=== PATIENT | male | born 1995 | race Caucasian/White ===

== ENCOUNTER 2017-08-31 17:24 | Emergency (ER) | payer OTHER, SELFPAY ==
[2017-08-31 17:25] VITALS: BP 157/70; PULSE 87; RESP 16; TEMP 36.2; O2SAT 97; BMI 27.8
--- NOTE | 2017-08-31 17:45 | CT_ITS ---
STUDY: CT BRAIN WITHOUT CONTRAST REASON FOR EXAM: Male, 22 years old. Head injury RADIATION DOSAGE (If Supplied By Facility): CTDIvol = ( 44.99 ) mGy, DLP = ( 796.11 ) mGycm TECHNIQUE: Transaxial CT imaging of the brain was performed without administration of intravenous contrast material. Individualized dose optimization techniques were used for this CT. COMPARISON: None. FINDINGS: Normal soft tissue structures. Normal calvarium. Normal size ventricles and extra-axial spaces for the patient's age. Normal white matter tracts of the cerebral hemispheres. Normal basal ganglia and thalami. Normal brainstem. Normal cerebellum. There is no intracranial hemorrhage. There are no findings of an acute ischemic infarction. Normal visualized paranasal sinuses. CT/Brain/Head without Contrast IMPRESSION: Normal unenhanced CT scan of the brain. Electronically Signed: Michael Leiva MD at 19:40 EDT , Service support ,
--- NOTE | 2017-08-31 17:47 | ED.DCSUM_ITS ---
- ER Visit Summary Date of Service: 08/31/17 Chief Complaint: Head injury History of Present Illness: The patient is a 22 M resents to the emergency with head injury. The patient was in his normal state of health. He was playing softball. He dove for a ball, and it bounced, and struck him in the left forehead. He is unsure if he lost consciousness. Since then, he had a mild headache, dizziness, nausea. The patient is not on anticoagulants. His last tetanus was less than 5 years ago. There is no history of hemophilia. Physical Examination: Vital signs reviewed General: Well-nourished, well-developed Head: Normocephalic, abrasion with contusion above left eye, abrasion of nose, no hemotympanum, no nasal septal hematoma Eyes: Pupils equal and reactive, extraocular muscles intact Neck, supple, no lymphadenopathy Heart: Regular rate and rhythm Respiratory: No distress, clear bilaterally Abdomen: Soft, nontender, nondistended, no peritoneal signs Back: Nontender Extremities: Nontender, no edema, no cords Skin: Normal color no rash Neuro: Alert and oriented, no focal or lateralizing deficits Test Results: [] Emergency Department Course and Treatment: With the patient's persistent headache and dizziness, I did obtain head CT. There is no evidence of acute intracerebral abnormality. Patient's wound was cleaned and dressed. There is no laceration will benefit from closure. Patient given Tylenol with improvement of symptoms. He was counseled on head injury and reasons to return. He will be discharged home. Treatment Plan: [] Disposition: Charge Impression:. Concussion 2. Facial abrasions This note was generated with [employer] dictation software. It may contain incorrect words, spelling, and punctuation that were not noted in review of the chart prior to signing ED Disposition - Plan for ED Patient: Chief Complaint: Head Injury Instructions: ED Concussion Referrals: Ugo Chicas [Primary Care Provider] -
[2017-08-31] MEDS: Ondansetron ODT 4 MG Tablet PO (17:51)
[2017-08-31] MEDS: Acetaminophen 500 MG Tablet 1000 MG PO (19:37)
[2017-08-31 20:07] VITALS: BP 138/88; PULSE 71; RESP 16; O2SAT 98
== END 2017-08-31 20:11 | disposition home or self-care (01) ==
PROVIDERS: Emergency Provider Emergency Medicine; Family Provider Family Medicine; PCP Family Medicine
DX: S06.0X0A Concussion without loss of consciousness, initial encounter (principal); S00.212A Abrasion of left eyelid and periocular area, initial encounter; S00.31XA Abrasion of nose, initial encounter; W22.8XXA Striking against or struck by other objects, initial encounter; Y93.64 Activity, baseball; Y92.320 Baseball field as the place of occurrence of the external cause; Y99.8 Other external cause status
CPT/HCPCS: 70450; 99283

== ENCOUNTER → 2022-06-27 | Outpatient (CLI) | payer SELFPAY, OTHER ==
--- NOTE | 2022-06-27 12:22 | ECHOD_ITS ---
Reason For Study: SOB Procedure This was a 2D Doppler, Color Flow transthoracic echocardiogram. Exam performed in department. Left Ventricle Normal left ventricle. The left ventricular ejection fraction is 65 %. Right Ventricle Normal right ventricle. Atria The left and right atria are normal. Bubble contrast study is positive for PFO. Mitral Valve Trivial mitral valve insufficiency. Tricuspid Valve Trivial tricuspid valve insufficiency. Unable to estimate RV systolic pressure due to insufficient tricuspid regurgitant envelope. Aortic Valve Normal aortic valve. Pulmonic Valve The pulmonic valve is not well visualized. Great Vessels Normal sized aortic root. Pericardium/Pleural No pericardial effusion. Medication 22 gauge I.V. with prn adaptor inserted into right arm. Performed a rapid injection of agitated mix of 9 cc saline and 1cc air to assess for atrial septal defect. MMode/2D Measurements & Calculations LVIDd: 5.1 cm IVSd: 0.98 cm Ao root diam: 2.9 cm LVIDs: 3.8 cm LVPWd: 1.0 cm FS: 24.8 % LAV(MOD-bp): 47.0 ml LVAd ap4: 28.1 cm2 SV(MOD-sp4): 53.0 ml LAV(MOD-bp) Indexed: 21.6 ml/m2 LVLd ap4: 7.9 cm LAV(MOD-sp2): 48.8 ml EDV(MOD-sp4): 85.0 ml LAV(MOD-sp4): 45.9 ml EDV(sp4-el): 84.3 ml LVAs ap4: 15.7 cm2 LVLs ap4: 6.4 cm ESV(MOD-sp4): 32.0 ml ESV(sp4-el): 32.8 ml EF(MOD-sp4): 62.4 % EF(sp4-el): 61.1 % SV(sp4-el): 51.5 ml LA A4 area: 17.3 cm2 LA dimension(2D): 3.4 cm RA A4 area: 16.1 cm2 Time Measurements MV dec time: 0.16 sec Doppler Measurements & Calculations MV E max omar: 64.2 cm/sec Lat Peak E' Omar: 17.9 cm/sec Med Peak E' Omar: 13.1 cm/sec MV A max omar: 56.6 cm/sec E/E' lat: 3.6 E/E' med: 4.9 MV E/A: 1.1 MV V2 max: 76.1 cm/sec MV dec slope: 510.3 cm/sec2 Ao V2 max: 115.1 cm/sec MV max P.3 mmHg Ao max P.3 mmHg MV V2 mean: 56.2 cm/sec Ao V2 mean: 84.0 cm/sec MV mean P.3 mmHg Ao mean P.2 mmHg MV V2 VTI: 20.3 cm Ao V2 VTI: 23.3 cm AV (velocity ratio): 0.82 LV V1 max: 96.0 cm/sec PA V2 max: 107.7 cm/sec LV V1 max P.7 mmHg PA V2 mean: 77.2 cm/sec LV V1 mean P.3 mmHg LV V1 mean: 72.5 cm/sec LV V1 VTI: 19.0 cm ECHO/Echo Complete Interpretation Summary The left ventricular ejection fraction is 65 %. Bubble contrast study is positive for PFO. Ordering Physician: Aaron Keating Referring Physician: KENDELL KOTHARI Performed By: Anita Small RCS
--- NOTE | 2022-06-27 13:20 | STRESSREP ---
Stress Test Report Date: 06/27/2022 Procedure: Exercise tolerance test Indications: Dyspnea/chest pain Consent: Per the patient Procedure: The patient exercised on a Edwin protocol for 9 minutes achieving a peak heart rate of 166 bpm (86% predicted maximal heart rate) with a peak blood pressure 154/78 mmHg and a peak MET capacity of approximately 10.1 MET's. The baseline ECG demonstrated normal sinus rhythm. The peak exercise ECG demonstrated no ischemic changes. There were no cardiac dysrhythmias pretest, during exercise, or recovery. The functional capacity was considered good. The patient had no complaints of chest discomfort during exercise or recovery. The examination was discontinued secondary to target heart rate being achieved and patient's complaint of dizziness. Impression: 1. Technically adequate (percent predicted maximal heart rate greater than 85%) exercise tolerance test 2. Peak exercise ECG with no ischemic changes 3. There were no cardiac dysrhythmias during exercise or recovery This note was generated with [employer] software. It may contain incorrect words, spelling, and punctuation that were not noted in checking the note before signing.
== END | disposition home or self-care (01) ==
LOC: CVS 12:20
PROVIDERS: PCP Family Medicine; Visit Provider Internal Medicine Cardiovascular Disease
DX: R07.9 Chest pain, unspecified (principal); R06.02 Shortness of breath; R00.2 Palpitations
CPT/HCPCS: 93017; 93306; A4216

== ENCOUNTER → 2023-10-23 | Outpatient (CLI) | payer OTHER, SELFPAY | END | disposition home or self-care (01) | PROVIDERS: PCP Family Medicine; Referring Provider Otolaryngology; Visit Provider Otolaryngology | DX: J02.9 Acute pharyngitis, unspecified (principal) | CPT/HCPCS: 87070 ==

== ENCOUNTER → 2024-02-28 | Outpatient (CLI) | payer SELFPAY ==
--- NOTE | 2024-02-28 09:02 | US_ITS ---
STUDY: ABDOMINAL ULTRASOUND - RIGHT UPPER QUADRANT REASON FOR VISIT: Male, 28 years old abnormal LFTs TECHNIQUE: Ultrasound evaluation of the right upper quadrant was performed with real-time and static sampson-scale imaging. TECHNICAL QUALITY: Limited. Examination limited by bowel gas. COMPARISON: None. FINDINGS: Liver: The liver measures 17 cm. There is increased echogenicity consistent with fatty infiltration. The bile ducts are within normal limits. There is hepatic color flow. The direction of portal flow is hepatopetal. There is no demonstrated mass lesion. Gallbladder: Normal distended gallbladder. The gallbladder wall measures 2 mm. There is a negative sonographic Bee''s sign. There is no pericholecystic fluid. There are no gallstones. Common Bile Duct (C.B.D.): The common bile duct measures 3 mm. Pancreas: Visualized pancreas is sonographically normal Right Kidney: Normal size of the right kidney. The right kidney measures 12.2 x 5.4 x 6.1 cm. Normal renal cortex. The right cortex measures 1.8 cm. There is no demonstrated renal mass or cyst. There is no right hydronephrosis. US/Abdomen Limited IMPRESSION: Enlarged fatty liver, no discrete lesion Electronically Signed: Frank Nieto MD at 21:08 EST ,
== END | disposition home or self-care (01) ==
PROVIDERS: PCP Family Medicine
DX: R74.01 Elevation of levels of liver transaminase levels (principal)
CPT/HCPCS: 76705

== ENCOUNTER → 2024-05-04 | Outpatient (CLI) | payer OTHER, SELFPAY ==
[2024-05-04 15:21] LABS: Absolute Lymphocyte Count 2.14 X10^3/uL (0.83-4.51); Basophil# 0.03 X10^3/uL; Basophil% 0.5 % (0-1); Eosinophil# 0.04 X10^3/uL; Eosinophils% 0.7 % (0-5); Hematocrit 44.5 % (40-54); Hemoglobin 15.4 g/dL (13.0-16.5); Lymphocyte # 2.14 X10^3/ul (0.83-4.51); Lymphocyte % 37.3 % (19-41); Mean Corp Hgb Conc 34.6 g/dL (32-36); Mean Corpuscular Hgb 30.3 pg (27.0-32.0); Mean Corpuscular Volume 87.4 fL (80-94); Mean Platelet Vol. 9.3 fl (6.2-12.0); Monocyte# 0.49 X10^3/uL; Monocyte% 8.6 % (0-10); NRBC Flagged by Analyzer 0 % (0-5); Neutrophil # 3.02 X10^3/uL (2.7-7.7); Neutrophil % 52.7 % (47-70); Platelet Count 219 K/mm3 (150-450); RBC Distribution Width CV 11.6 % (11.6-14.6); RBC Distribution Width SD 37.2 fl (35.1-43.9); Red Blood Count 5.09 M/mm3 (4.6-6.2); White Blood Count 5.7 K/mm3 (4.4-11.0)
[2024-05-04 16:00] LABS: ALB/GLOB Ratio 1.1 RATIO (0.9-2.4); AST(SGOT) 31 U/L (15-37); Alanine Aminotransfer ALT/SGPT 98 U/L (16-61); Alkaline Phosphatase 89 U/L (45-117); Anion Gap 6 (5-15); BUN 16 mg/dL (7-18); BUN/Creat Ratio 15.8 RATIO (10-20); Calcium,Total 9.5 mg/dL (8.5-10.1); Chloride 106 mmol/L (98-107); Creatinine, Serum 1.01 mg/dL (0.70-1.30); EST Glomerular Filtration Rate 93 mL/min (>60); Est Glom Filt Rate - Afr Amer 112 mL/min (>60); Globulin 3.6 g/dL (2.2-4.2); Glucose 91 mg/dL (74-106); Potassium 3.9 mmol/L (3.5-5.1); Protein, Total 7.6 g/dL (6.4-8.2); Sodium Level 140 mmol/L (136-145)
[2024-05-04 16:12] LABS: Hepatitis B Surface Antibody Non-Reactive
[2024-05-04 16:38] LABS: Hepatitis B Surface Antigen Non-Reactive (Nonreactive); Hepatitis C Antibody Non-Reactive (Nonreactive)
[2024-05-06 05:07] LABS: Hepatitis A AB, Total Negative (Negative); Hepatitis B Core Ab Total Negative (Negative)
== END | disposition home or self-care (01) ==
PROVIDERS: PCP Family Medicine; Referring Provider Nurse Practitioner Acute Care; Visit Provider Nurse Practitioner Acute Care
DX: K76.0 Fatty (change of) liver, not elsewhere classified (principal)
CPT/HCPCS: 36415; 80053; 85025; 86704; 86706; 86708; 86803; 87340

== ENCOUNTER → 2024-05-05 | Outpatient (CLI) | payer SELFPAY ==
[2024-05-06 11:08] LABS: H. PYLORI STOOL AG Negative (Negative)
== END | disposition home or self-care (01) ==
PROVIDERS: PCP Family Medicine; Referring Provider Nurse Practitioner Acute Care; Visit Provider Nurse Practitioner Acute Care
DX: R12 Heartburn (principal)
CPT/HCPCS: 87338

== ENCOUNTER 2024-06-29 11:38 | Day surgery (SDC) | payer SELFPAY ==
--- NOTE | 2024-06-28 12:56 | PAT.ANESEVAL ---
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 When Was Last Pacemaker Check QUESTION #4 FULL TEXT: You/Your Family Experience fever (hyperthermia) with Anesthesia Last Oral Intake Last Oral intake: Last Oral Intake NPO since Meds taken in AM with sips of water? Meds patient instructed to take am of surgery PONV PONV - furnace helper: PONV - furnace helper Female No 06/25/24 16:08 HX of Motion Sickness Yes 06/25/24 16:08 HX of N/V After Surgery No 06/25/24 16:08 Non-Smoker Yes 06/25/24 16:08 Duration of Surgery greater No 06/25/24 16:08 than 60 minutes Number of Risk Factors 2 06/25/24 16:08 PONV Score Moderate Risk 06/25/24 16:08 Height & Weight Height & Weight: Anesthesia: Height & Weight Height 5 ft 10 in 05/04/24 13:29 Respiratory Assessment Respiratory Assessment - furnace helper: Respiratory Tract Infection Hx - furnace helper Hx Respiratory Tract Infection No 06/25/24 16:08 STOP Sleep Apnea STOP Sleep Apnea - furnace helper: STOP Sleep Apnea - furnace helper Hx Hypertension No 06/25/24 16:08 Hx Sleep Apnea No 06/25/24 16:08 CPAP BIPAP Do you snore loudly (louder Yes 06/25/24 16:08 than talking or can be heard Do you often feel tired/ No 06/25/24 16:08 fatigued/ sleepy during daytime? Has anyone observed you stop No 06/25/24 16:08 breathing during sleep? STOP Results Negative 06/25/24 16:08 QUESTION #5 FULL TEXT : Do you snore loudly (louder than talking or can be heard through closed doors)? 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 Specify any problems Hx of Preganancy in last 3 N/A 06/25/24 16:08 Months Nurse Filling Out Transfusion DSCHRIBER 06/25/24 16:08 & Questions: Date: 06/25/24 06/25/24 16:08 Time: 16:10 06/25/24 16:08 Patient unable to answer at this time (ie. confused, unrespo /Reproduction History /Reproductive History - furnace helper: /Reproductive Hx- furnace helper Hx Now No 06/25/24 16:08 Gestational Age (in weeks): EDC: Hx Hx Para Hx Section SAB No 06/25/24 16:08 PFSH Medical History (Updated 06/25/24 @ 16:19 by Shaniqua Sanchez) Wears glasses Low iron Restless legs Back pain Injury of head and neck History of hiatal hernia Former smoker Fatty liver History of edema History of echocardiogram History of stress test Cardiology follow-up encounter History of irregular heartbeat GERD (gastroesophageal reflux disease) Anxiety Migraine PFO (patent foramen ovale) Palpitations Home Medications ?Medication ?Instructions ?Recorded ?Last Taken ?Type NK 06/25/24 Unknown History Allergy/AdvReac Type Severity Reaction Status Date / Time diphenhydramine (From AdvReac Intermediate Other Verified 06/25/24 16:06 Benadryl) Family History Grandfather CAD (coronary artery disease) Father Hypertension Grandfather Pacemaker Mother Migraine Surgical History (Updated 06/25/24 @ 16:19 by Shaniqua Sanchez) Hx of wisdom tooth extraction Hx of nasal septoplasty History of ankle surgery Social History Smoking Status: Former smoker alcohol intake: never substance use type: does not use caffeine: Yes Type: coffee Number of servings: 2 Audit: Pertinent Findings Pertinent Findings EKG Perinent findings: 06/12/2022. Sinus rhythm. RSR V1 nondiagnostic. Echo (EF%) pertinent findings: 06/27/2022. EF 65%. Bubble contrast study is positive for PFO. Consult pertinent findings: Cardiology 10/31/2022. Hypertension. Inactive. PFO. Chronic. Stable. Palpitations. Chronic. No significant arrhythmia noted on Holter. Recommendation Anesthesia Recommendation Anesthesia recommendation: OPTIMIZED for anesthesia
[2024-06-29] VITALS (9 sets, daily range): BP systolic 112–121; BP diastolic 75–85; PULSE 74–82; RESP 14–16; TEMP 36.2–36.4; O2SAT 93–98; BMI 32.5
--- NOTE | 2024-06-29 12:12 | PCM.PRE.AN2 ---
ASA Classification* ASA Classification ASA Classification: 2 Assessment & Plan Anesthesia* Anesthesia Assessment Anesthesia Assessment: Discussed sedation and/or anesthesia options, risks, benefits, and alternatives with patient/parents/legal guardian/POA. Questions invited. The patient/parents/legal guardian/POA seems to understand and agrees to proceed with anesthesia plan. Reviewed the physical assessment, medical history, allergy history and patient home medications list prior to surgery/procedure/anesthetic and documented any changes. Performed airway and anesthesia risk assessments. Anesthesia Type Anesthesia Type: MAC History Source History Obtained from:: Patient and Chart Anesthesia Focused Assessment* Temperature: 97.3 F Pulse Rate: 80 Blood Pressure: 121/82 Respiratory Rate: 16 Pulse Ox: 98 Oxygen Delivery Method: Room Air Airway Assessment Mouth opens: >3 cm Mallampati Score: I Teeth Condition: Intact Neck Range of motion (ROM): Full ROM Focused Labs Anesthesia Preop lab: CBC WBC 5.7 K/mm3 (4.4-11.0) 05/04/24 14:36 05/04/24 RBC 5.09 M/mm3 (4.6-6.2) 05/04/24 14:36 05/04/24 Hgb 15.4 g/dL (13.0-16.5) 05/04/24 14:36 05/04/24 Hct 44.5 % (40-54) 05/04/24 14:36 05/04/24 Plt Count 219 K/mm3 (150-450) 05/04/24 14:36 05/04/24 CHEMISTRY Potassium 3.9 mmol/L (3.5-5.1) 05/04/24 14:36 05/04/24 Sodium 140 mmol/L (136-145) 05/04/24 14:36 05/04/24 BUN 16 mg/dL (7-18) 05/04/24 14:36 05/04/24 Creatinine 1.01 mg/dL (0.70-1.30) 05/04/24 14:36 05/04/24 Glucose 91 mg/dL (74-106) 05/04/24 14:36 05/04/24 COAG Pre-Assessment Diagnosis/Proposed Procedure Planned Operative Procedure(s): EGD Anesthesia History 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 When Was Last Pacemaker Check QUESTION #4 FULL TEXT: You/Your Family Experience fever (hyperthermia) with Anesthesia Last Oral Intake Last Oral intake: Last Oral Intake NPO since 22:30 06/29/24 12:03 Meds taken in AM with sips of No 06/29/24 12:03 water? Meds patient instructed to take am of surgery PONV PONV - electrical manufacturing engineer: PONV - electrical manufacturing engineer Female No 06/25/24 16:08 HX of Motion Sickness Yes 06/25/24 16:08 HX of N/V After Surgery No 06/25/24 16:08 Non-Smoker Yes 06/25/24 16:08 Duration of Surgery greater No 06/25/24 16:08 than 60 minutes Number of Risk Factors 2 06/25/24 16:08 PONV Score Moderate Risk 06/25/24 16:08 Height & Weight Height & Weight: Anesthesia: Height & Weight Height 5 ft 10 in 06/29/24 12:03 Weight: 102.8 kg 06/29/24 12:03 Body Mass Index (BMI) 32.5 06/29/24 12:03 Respiratory Assessment Respiratory Assessment - electrical manufacturing engineer: Respiratory Tract Infection Hx - electrical manufacturing engineer Hx Respiratory Tract Infection No 06/25/24 16:08 STOP Sleep Apnea STOP Sleep Apnea - electrical manufacturing engineer: STOP Sleep Apnea - electrical manufacturing engineer Hx Hypertension No 06/25/24 16:08 Hx Sleep Apnea No 06/25/24 16:08 CPAP BIPAP Do you snore loudly (louder Yes 06/25/24 16:08 than talking or can be heard Do you often feel tired/ No 06/25/24 16:08 fatigued/ sleepy during daytime? Has anyone observed you stop No 06/25/24 16:08 breathing during sleep? STOP Results Negative 06/25/24 16:08 QUESTION #5 FULL TEXT : Do you snore loudly (louder than talking or can be heard through closed doors)? 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 Specify any problems Hx of Preganancy in last 3 N/A 06/25/24 16:08 Months Nurse Filling Out Transfusion DSCHRIBER 06/25/24 16:08 & Questions: Date: 06/25/24 06/25/24 16:08 Time: 16:10 06/25/24 16:08 Patient unable to answer at this time (ie. confused, unrespo /Reproduction History /Reproductive History - electrical manufacturing engineer: /Reproductive Hx- electrical manufacturing engineer Hx Now No 06/25/24 16:08 Gestational Age (in weeks): EDC: Hx Hx Para Hx Section SAB No 06/25/24 16:08 PFSH Medical History Wears glasses Low iron Restless legs Back pain Injury of head and neck History of hiatal hernia Former smoker Fatty liver History of edema History of echocardiogram History of stress test Cardiology follow-up encounter History of irregular heartbeat GERD (gastroesophageal reflux disease) Anxiety Migraine PFO (patent foramen ovale) Palpitations Home Medications ?Medication ?Instructions ?Recorded ?Last Taken ?Type NK 06/25/24 Unknown History Allergy/AdvReac Type Severity Reaction Status Date / Time diphenhydramine (From AdvReac Intermediate Other Verified 06/29/24 12:01 Benadryl) Family History Grandfather CAD (coronary artery disease) Father Hypertension Grandfather Pacemaker Mother Migraine Surgical History Hx of wisdom tooth extraction Hx of nasal septoplasty History of ankle surgery Social History Smoking Status: Former smoker alcohol intake: never substance use type: does not use caffeine: Yes Type: coffee Number of servings: 2 Review of Systems (Anesthesia) ROS Narrative System reviewed and no additional complaints, except as documented.
--- NOTE | 2024-06-29 12:30 | EGD_PTH ---
PATIENT: ALLIE HORN LOC: EN U#:[id number] AGE/SX: 29/M ROOM: RE06/29/[address]: Dr. Yobany Chilel DO : 1995 BED: DIS: 06/29/2024 SPEC #: [id number] RECD: 06/30/24 09:44 STATUS: YARIEL LIS #: [id number] CHAR: 06/29/24 12:[address]: Yobany Chilel DEPT: SURGICAL PATHOLOGY RECD BY: Nathalie Pascual ENTERED: 06/30/24 10:15 SP TYPE: EGD BIOPSY JOHN DR: Dr. Yusuf Whitfield MD Tissues: A - Gastric mucous membrane B - Esophagus, NOS Procedures: Immunohistochemical Stains Surgery Specimen Level IV HEADER OPERATION: EGD with biopsies PRE-OP DIAGNOSIS: Gastroesophageal reflux disease, heartburn, fatty liver TISSUE SUBMITTED: A- Gastric body biopsy, B- Distal esophagus biopsy x3 MICROSCOPIC DIAGNOSIS A. Stomach, body, biopsy: * Oxyntic and antral/transitional mucosa with features of reactive gastropathy. * Negative for H pylori organisms (H&E stain). B. Distal esophagus, biopsy x 3: * Squamous mucosa with mild reactive changes. * Columnar mucosa negative for goblet cell metaplasia. MICROSCOPIC DESCRIPTION Slides are reviewed. GROSS DESCRIPTION A. Received in formalin in a container labeled with the patient's name, date of , and gastric body biopsy are multiple higuera-pink fragments of mucosal tissue measuring 1.0 x 0.7 x 0.3 cm in aggregate. Submitted in toto in A1. B. Received in formalin in a container labeled with the patient's name, date of , and distal esophagus biopsy x 3 are multiple higuera-pink fragments of mucosal tissue measuring 1.0 x 0.7 x 0.2 cm in aggregate. Submitted in toto in B1. [facility] 06/29/2024 CPT:[id number]
--- NOTE | 2024-06-29 13:02 | HP.PCM_ITS ---
HPI - General General Date of Admission: 06/29/24 Date of Service: 06/29/24 Chief Complaint: abdominal pain and GERD HPI Narrative ALLIE HORN, is a 29 M who presents for the evaluation of abdominal pain and GERD LABS: 02/16/2024 CBC WNL, ALT 105, AST 41 11/06/2023 ALT 89 ABD US: 02/28/2024 hepatomegaly with steatosis GIMAP 02/19/2024 negative C. Diff, Shigella, E. Coli, O&P - Fecal Elastase WNL - Fecal Calprotectin WNL - Septoplasy April 2023 has had burning in back of throat since then - denies any HB, reflux or dysphagia - f/u with ENT not related to surgery - Amoxicillin x2 did not help - PPI and sucralfate helped a little bit but did not get rid of anything - if he eats slow with small meals - he does not notice the uneasy feeling as much - weight loss of 45lbs in the past year - he does snore and is a mouth breather - Omeprazole BID x14 days - no improvement - sucralfate BID no improvement - he typically has 2-3 between eating and laying down - no longer experiencing constipation with dietary changes -He is experiencing some diarrhea, feels this is secondary to possible too much fiber -His diet primarily consists of protein and some vegetables -He denies any bleeding -He denies any family history of colon cancer - Food Allergy testing - eggs, dairy, peanuts - brother 31y/o [facility] Medical History Wears glasses Low iron Restless legs Back pain Injury of head and neck History of hiatal hernia Former smoker Fatty liver History of edema History of echocardiogram History of stress test Cardiology follow-up encounter History of irregular heartbeat GERD (gastroesophageal reflux disease) Anxiety Migraine PFO (patent foramen ovale) Palpitations Home Medications ?Medication ?Instructions ?Recorded ?Last Taken ?Type NK 06/25/24 Unknown History Allergy/AdvReac Type Severity Reaction Status Date / Time diphenhydramine (From AdvReac Intermediate Other Verified 06/29/24 12:01 Benadryl) Family History Grandfather CAD (coronary artery disease) Father Hypertension Grandfather Pacemaker Mother Migraine Surgical History Hx of wisdom tooth extraction Hx of nasal septoplasty History of ankle surgery Social History Smoking Status: Former smoker alcohol intake: never substance use type: does not use caffeine: Yes Type: coffee Number of servings: 2 ROS Constitutional Constitutional: Denies fatigue, fever(s), poor appetite, weight gain or weight loss Gastrointestinal Gastrointestinal: Denies belching, bloating, change in bowel habits, change in stool character, chewing difficulty, coffee ground emesis, constipation, cramping, diarrhea, dyspepsia, dysphagia, early satiety, excessive flatus, fecal incontinence, heartburn, hematemesis, hematochezia, hemorrhoids, loose stools, melena, nausea, odynophagia, rectal bleeding, tenesmus, vomiting or weight changes Vital Signs Vital Signs Vital Signs: 06/29/24 12:03 06/29/24 12:03 06/29/24 12:19 Temperature 97.3 F L 97.3 F L Temperature Source Temporal Pulse Rate 80 80 Respiratory Rate 16 16 Respiratory Pattern Normal Blood Pressure 121/82 H 121/82 H Blood Pressure Mean 95 Blood Pressure Source Monitor Blood Pressure Position Semi-Fowlers Blood Pressure Location Right Arm Pulse Ox 98 98 Oxygen Delivery Method Room Air Room Air Weight Weight: 226 lb 10.163 oz Body Mass Index (BMI) 32.5 Physical Exam Const alert, oriented x3, no apparent distress and healthy appearing General Appearance: cooperative GI normal to inspection, nondistended, normoactive bowel sounds, soft to palpation, non-tender and non-distended Percussion: normal to percussion Rectal Exam: deferred Assessment & Plan Assessment/Plan (1) Elevated liver enzymes: (2) Fatty liver: (3) Heartburn: PLAN: Plan Assessment and Plan Assessment and Plan (1) Gastroesophageal reflux disease: Qualifiers: Esophagitis presence: esophagitis presence not specified Qualified Code(s): K21.9 - Gastro-esophageal reflux disease without esophagitis (2) Heartburn: Status: Acute (3) Fatty liver: Status: Acute Orders: Orders H. PYLORI STOOL AG Today R12 - Heartburn CBC W/Diff, Automated Today K76.0 - Fatty (change of) liver, not elsewhere classified Comprehensive Metabolic Profil Today K76.0 - Fatty (change of) liver, not elsewhere classified Hepatitis A AB, Total Today K76.0 - Fatty (change of) liver, not elsewhere classified Hepatitis B Core Ab Total Today K76.0 - Fatty (change of) liver, not elsewhere classified Medications: New vonoprazan (Voquezna) take once daily with or without food 20 mg PO QDAY 30 tabs 3RF Plan 28y/o male presents for consultation with complaints of sore throat, epigastric burning and elevated transaminases. Labs completed February 2024 reveal AST 41, ALT 105. ABD US completed 02/28/2024 revealed hepatomegaly with steatosis. Symptoms began post Septoplasty one year ago. He complains of burning sensation in back of throat and roof of mouth with occasional epigastric burning and heartburn. Symptoms are worse in the morning and he does feel symptoms are effecting his voice. He denies any improvement in symptoms with omeprazole BID, sucralfate or two courses of Amoxicillin. He does notice a decrease in symptoms with eating small meals. He reports an intentional weight loss of 45 pounds in the past year. I have ordered H. pylori stool testing which she will complete and then start vocalize nausea 20 mg once daily. He has made significant dietary changes including increasing his protein intake, vegetables and elimination of fatty and fried foods to promote weight loss. With these dietary changes he reports resolution of constipation but is now experiencing some diarrhea. He denies any bleeding or abdominal pain. I have recommended he start FiberCon tablets once daily. Labs completed February 2024 reveal an AST of 105, AST 41 and CBC WNL. Abdominal ultrasound also performed February 2024 revealed hepatomegaly and steatosis. I have ordered additional labs and FibroScan. He will follow-up in the office to review results. Patient Instructions: Fibercon 2 tablets once daily with 8 ounces of water after a meal. May take up to 3 weeks for symptom improvement. Voquezna 20mg once daily, take with or without food. Complete H. pylori stool testing prior to starting Voquezna EGD Follow-up in the office 1-2 weeks post EGD
--- NOTE | 2024-06-29 13:32 | OP.EGD_ITS ---
Patient Name: Marcelino Kincaid Procedure Date: 06/29/2024 1:04 PM Date of : 1995 Age: 29 Procedure: Upper GI endoscopy Indications: Functional Dyspepsia, Heartburn Providers: Yobany Chilel DO Referring MD: Yusuf Whitfield Md Medicines: Monitored Anesthesia Care Patient Profile: This is a 29 year old male. Refer to note in patient chart for documentation of history and physical. Patient has symptoms of chronic heartburn and chronic regurgitation. Complications: No immediate complications. Procedure: Pre-Anesthesia Assessment: - Prior to the procedure, a History and Physical was performed, and patient medications and allergies were reviewed. The patient is competent. The risks and benefits of the procedure and the sedation options and risks were discussed with the patient. All questions were answered and informed consent was obtained. Patient identification and proposed procedure were verified by the physician in the pre-procedure area. Mental Status Examination: alert and oriented. Airway Examination: normal oropharyngeal airway and neck mobility. Respiratory Examination: clear to auscultation. CV Examination: normal. Prophylactic Antibiotics: The patient does not require prophylactic antibiotics. Prior Anticoagulants: The patient has taken no anticoagulant or antiplatelet agents except for NSAID medication. ASA Grade Assessment: II - A patient with mild systemic disease. After reviewing the risks and benefits, the patient was deemed in satisfactory condition to undergo the procedure. The anesthesia plan was to use monitored anesthesia care (MAC). Immediately prior to administration of medications, the patient was re-assessed for adequacy to receive sedatives. The heart rate, respiratory rate, oxygen saturations, blood pressure, adequacy of pulmonary ventilation, and response to care were monitored throughout the procedure. The physical status of the patient was re-assessed after the procedure. After obtaining informed consent, the endoscope was passed under direct vision. Throughout the procedure, the patient's blood pressure, pulse, and oxygen saturations were monitored continuously. The Endoscope was introduced through the mouth, and advanced to the second part of duodenum. The upper GI endoscopy was accomplished without difficulty. The patient tolerated the procedure well. Scope In: 1:16:30 PM Scope Out: 1:22:51 PM Total Procedure Duration Time 0 hours 6 minutes 21 seconds Findings: The Z-line was irregular and was found 40 cm from the incisors. Biopsies were taken with a cold forceps for histology. Verification of patient identification for the specimen was done. Estimated blood loss was minimal. Patchy mildly erythematous mucosa without bleeding was found in the gastric body. Biopsies were taken with a cold forceps for histology. Verification of patient identification for the specimen was done. Biopsies were taken with a cold forceps for Helicobacter pylori testing. Verification of patient identification for the specimen was done. Estimated blood loss was minimal. No gross lesions were noted in the entire examined duodenum. Impression: - Z-line irregular, 40 cm from the incisors. Biopsied. - Erythematous mucosa in the gastric body. Biopsied. - No gross lesions in the entire examined duodenum. Recommendation: - Discharge patient to home. - Resume previous diet. - Continue present medications. - Await pathology results. Procedure Code(s): --- Professional --- 95903, Esophagogastroduodenoscopy, flexible, transoral; with biopsy, single or multiple CPT copyright 2021 [employer]. All rights reserved. The codes documented in this report are preliminary and upon information coder review may be revised to meet current compliance requirements. Yobany Chilel DO 06/29/2024 1:31:59 PM This report has been signed electronically. Number of Addenda: 0 Note Initiated On: 06/29/2024 1:04 PM
--- NOTE | 2024-06-29 13:32 | OP.CCLET_ITS ---
06/29/2024 Yusuf Whitfield Md Re : Upper GI endoscopy procedure for Marcelino Vazquez Nahid This procedure was performed on Saturday, June 29, 2024. My impressions and recommendations are as follows: Impressions : - Z-line irregular, 40 cm from the incisors. Biopsied. - Erythematous mucosa in the gastric body. Biopsied. - No gross lesions in the entire examined duodenum. Recommendations : - Discharge patient to home. - Resume previous diet. - Continue present medications. - Await pathology results. My findings are described in the full procedure note, which is enclosed. If I can be of further assistance, please feel free to contact me at . Sincerely, Yobany Chilel, 06/29/2024 1:31:59 PM This report has been signed electronically.
--- NOTE | 2024-06-29 13:32 | PCM.POST.ANE ---
Anesthesia: Postop Eval I Current Vital Signs Temperature: 97.1 F Pulse Rate: 81 Blood Pressure: 117/76 Respiratory Rate: 14 Pulse Ox: 95 Oxygen Delivery Method: Room Air Assessment Airway patent: Yes Spontaneous unlabored respirations: Yes Mental status: Asleep nausea: No Vomiting: No Anesthesia Complication: No Fluid Hydration Crystalloid volume administer (ml): 30 Total IV fluid infused: 30 Progress Note Anesthesia document: Postop Eval 1 completed: Yes
--- NOTE | 2024-06-29 16:16 | PCM.POSTANE2 ---
Anesthesia Postop Eval I Sum Postop Eval Completion status Anesthesia document: Postop Eval 1 completed: Yes Anesthesia Postop Eval I Summary Anesthesia Postop Eval I Summary: Anesthesia Postop Eval I: Assessment Summary Airway patent Yes 06/29/24 13:33 [email or web address] Spontaneous unlabored Yes 06/29/24 13:33 [email or web address] respirations Mental status Asleep 06/29/24 13:33 [email or web address] nausea No 06/29/24 13:33 [email or web address] Vomiting No 06/29/24 13:33 [email or web address] Anesthesia Postop Eval I: Fluid Summary Crystalloid volume administer 30 06/29/24 13:33 [email or web address] (ml) Colloids volume administered ( ml) Blood Product volume administered (ml) Total IV fluid infused 30 06/29/24 13:33 [email or web address] Anesthesia Postop Eval I: Summary Notes Anesthesia Complication No 06/29/24 13:33 [email or web address] Anesthesia Complication Comment: Post-operative progress note Anesthesia: Postop Eval II Evaluation Mental status: Awake and Calm Pain Level: 0 nausea: No Vomiting: No Complications Anesthesia Complication: No
== END 2024-06-29 14:33 | disposition home or self-care (01) ==
LOC: EN 11:42 → AC 11:46
PROVIDERS: PCP Family Medicine; Referring Provider Family Medicine; Visit Provider Internal Medicine Gastroenterology
PROC: 0DJ08ZZ Inspection of Upper Intestinal Tract, Via Natural or Artificial Opening Endoscopic (ICD-10-PCS; CPT 43235; principal; 2024-06-29 12:25)
DX: K21.9 Gastro-esophageal reflux disease without esophagitis (principal); K76.0 Fatty (change of) liver, not elsewhere classified; K31.89 Other diseases of stomach and duodenum; Z87.891 Personal history of nicotine dependence
CPT/HCPCS: 43239; 88305; 88342; A4216; J2405

== ENCOUNTER → 2024-07-26 | Outpatient (CLI) | payer SELFPAY ==
[2024-07-26 13:31] LABS: Absolute Lymphocyte Count 2.51 X10^3/uL (0.83-4.51); Absolute Neutrophil Count 3.9 X10^3/uL (2.0-7.7); Basophil# 0.03 X10^3/uL; Basophil% 0.4 % (0-1); Eosinophil# 0.04 X10^3/uL; Eosinophils% 0.6 % (0-5); Hematocrit 47.3 % (40-54); Hemoglobin 16.2 g/dL (13.0-16.5); Lymphocyte # 2.51 X10^3/ul (0.83-4.51); Lymphocyte % 35.7 % (19-41); Mean Corp Hgb Conc 34.2 g/dL (32-36); Mean Corpuscular Hgb 30.5 pg (27.0-32.0); Mean Corpuscular Volume 88.9 fL (80-94); Mean Platelet Vol. 9.5 fl (6.2-12.0); Monocyte# 0.53 X10^3/uL; Monocyte% 7.5 % (0-10); NRBC Flagged by Analyzer 0 % (0-5); Neutrophil % 55.5 % (47-70); Platelet Count 195 K/mm3 (150-450); RBC Distribution Width CV 11.8 % (11.6-14.6); RBC Distribution Width SD 37.8 fl (35.1-43.9); Red Blood Count 5.32 M/mm3 (4.6-6.2)
[2024-07-26 14:10] LABS: AST(SGOT) 24 U/L (<=37); Alanine Aminotransfer ALT/SGPT 44 U/L (<=46); Albumin, Serum 4.3 g/dL (3.5-5.0); Alkaline Phosphatase 85 U/L (40-129); Bilirubin, Direct 0.12 mg/dL (0.00-0.30); Ferritin 362 ng/mL (37-417); Globulin 2.7 g/dL (2.2-4.2); Iron 72 ug/dL (65-175); Iron Binding Capacity,Total 317 ug/dL (250-450); Iron Binding Capacity,Unsat 245 ug/dL (228-428); Protein, Total 7.1 g/dL (5.9-8.4); Total Bilirubin 0.28 mg/dL (0.00-1.30)
[2024-07-28 17:08] LABS: ANTINUCLEAR ANTIBODIES DIRECT Negative (Negative); Anti-Mitochondrial AB <20.0 Units (0.0-20.0)
[2024-07-29 09:08] LABS: Anti-Smooth Muscle ABS 15 Units (0-19); Ceruloplasmin 24.1 mg/dL (16.0-31.0); Cytoplasmic Ab (C-ANCA) <1:20 titer (Neg:<1:20); Perinuclear Ab (P-ANCA) <1:20 titer (Neg:<1:20)
== END | disposition home or self-care (01) ==
LOC: LAB 11:31
PROVIDERS: PCP Family Medicine; Referring Provider Nurse Practitioner Acute Care; Visit Provider Nurse Practitioner Acute Care
DX: K76.0 Fatty (change of) liver, not elsewhere classified (principal); R74.8 Abnormal levels of other serum enzymes
CPT/HCPCS: 36415; 80076; 82390; 82728; 83516; 83540; 83550; 84443; 85025; 86037; 86038; 86225